=== PATIENT | male | born 1945 | race Caucasian/White ===

== ENCOUNTER 2023-12-28 20:53 | Inpatient (IN) | payer OTHER, SELFPAY ==
[2023-12-28] VITALS (7 sets, daily range): BP systolic 152–170; BP diastolic 72–97; BMI 28.4
--- NOTE | 2023-12-28 16:33 | ED.GENMED ---
History of Present Illness
<Trevor Paul PA-C - Last Filed: 12/28/23 19:14>
General
Chief Complaint: Male Genito-Urinary Symptoms
Source: patient
Exam Limitations: none
Time Seen by Provider: 12/28/23 15:59
Travel History
Have you had any contact with someone who has COVID-19?: No
Do you have any symptoms of coronavirus? Fever > 100 degrees, chills, cough, shortness of breath, sore throat, loss of taste or smell, muscle aches, or headache?: No
History of Present Illness
History of Present Illness:
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 The redness is now spreading up to the lower abdomen. He states he has
been able to urinate 4 times today but it was a weak stream. He takes tramadol for pain but does not take any other medications daily. He is due to start chemotherapy in 2 days. He has never been here. All of his work has been done in [place]
[facility]. He denies nausea vomiting or fever. He states he was using Preparation H to help with swelling 2 days ago and some of the skin came off over the base of his penis.
Phy Exam
<Trevor Paul PA-C - Last Filed: 12/28/23 19:14>
Physical Exam
Physical Exam:
General: Well-appearing male no acute respiratory distress
HEENT: Normocephalic atraumatic
Heart: Regular rate and rhythm no murmurs
Lungs: Clear to auscultation bilaterally no wheezing
Abdomen soft nontender nondistended no guarding rebound normal bowel sounds
exam: Significantly deformed and swollen penis with swollen and erythematous scrotum. Erythema spreading to the lower abdomen.
Extremities: No cyanosis
Course
<Trevor Paul PA-C - Last Filed: 12/28/23 19:14>
Orders/Labs/Results
Orders:
Orders
12/28/23 16:17
Bladder Scan- Treatment ONCE
12/28/23 16:20
Bladder Scan- Treatment ONCE
12/28/23 16:21
Urinalysis Reflex To Culture Urgent
12/28/23 16:29
CT Abd/pelvis W Iv Cont Urgent
Comment:
Reason For Exam: penile and groin swelling
12/28/23 16:49
Complete Blood Count/With Diff Urgent
Comprehensive Metabolic Panel Urgent
Lactic Acid Q4H
Comment: CANCEL 2nd LACTIC ACID IF 1st LACTIC ACID IS LESS THAN 2
Blood Culture Q30M
JIGNA Source: Blood/Venous
Specimen Description:
Blood Culture Q30M
JIGNA Source: Blood/Venous
Specimen Description:
12/28/23 19:04
Piperacillin/Tazo 3.375 Gram [Zosyn] 3.375 gram in 50 ml IV NOW
Vancomycin [Vancocin] 1,500 mg 0.9% Sodium Chloride [Nss] 20 ml 0.9% Sodium Chloride 250 ml [Nss] 250 ml IV NOW
12/28/23 20:30
Lactic Acid Q4H
Comment: CANCEL 2nd LACTIC ACID IF 1st LACTIC ACID IS LESS THAN 2
Abnormal Lab Results
12/28/23
16:49
RBC 3.77 L 10^6/uL
(4.70-6.10)
Hgb 9.9 L g/dL
(13.0-18.0)
Hct 30.2 L %
(39.0-52.0)
MCH 26.3 L pg
(27.0-31.0)
MCHC 32.8 L g/dL
(33.0-37.0)
RDW 14.6 H %
(11.5-14.5)
Absolute Lymphs (auto) 0.5 L 10^3/uL
(1.2-3.4)
Neutrophils % 76.2 H %
(42.2-75.2)
Lymphocytes % 8.8 L %
(20.5-51.1)
Monocytes % 10.2 H %
(1.7-9.3)
Sodium 134 L mmol/L
(135-145)
BUN 28 H mg/dl
(9-20)
AST 78 H U/L
(17-59)
Alkaline Phosphatase 206 H U/L
(38-126)
12/28/23 16:49
12/28/23 16:49
Vital Signs
Initial and Last Documented VS:
Initial Vital Signs
Temp Pulse Resp BP Pulse Ox
98.9 F 79 16 169/97 100
12/28/23 15:40 12/28/23 15:40 12/28/23 15:40 12/28/23 15:40 12/28/23 15:40
Last Documented Vital Signs
Temp Pulse Resp BP Pulse Ox
98.9 F 74 19 170/82 100
12/28/23 15:40 12/28/23 19:10 12/28/23 19:10 12/28/23 19:00 12/28/23 19:00
<Macario Miguel, DO - Last Filed: 12/28/23 16:45>
Orders/Labs/Results
Orders:
Orders
12/28/23 16:17
Bladder Scan- Treatment ONCE
12/28/23 16:20
Bladder Scan- Treatment ONCE
12/28/23 16:21
Urinalysis Reflex To Culture Urgent
12/28/23 16:29
CT Abd/pelvis W Iv Cont Urgent
Comment:
Reason For Exam: penile and groin swelling
12/28/23 16:49
Complete Blood Count/With Diff Urgent
Comprehensive Metabolic Panel Urgent
Lactic Acid Q4H
Comment: CANCEL 2nd LACTIC ACID IF 1st LACTIC ACID IS LESS THAN 2
Blood Culture Q30M
JIGNA Source: Blood/Venous
Specimen Description:
Blood Culture Q30M
JIGNA Source: Blood/Venous
Specimen Description:
12/28/23 19:04
Piperacillin/Tazo 3.375 Gram [Zosyn] 3.375 gram in 50 ml IV NOW
Vancomycin [Vancocin] 1,500 mg 0.9% Sodium Chloride [Nss] 20 ml 0.9% Sodium Chloride 250 ml [Nss] 250 ml IV NOW
12/28/23 20:30
Lactic Acid Q4H
Comment: CANCEL 2nd LACTIC ACID IF 1st LACTIC ACID IS LESS THAN 2
Abnormal Lab Results
12/28/23
16:49
RBC 3.77 L 10^6/uL
(4.70-6.10)
Hgb 9.9 L g/dL
(13.0-18.0)
Hct 30.2 L %
(39.0-52.0)
MCH 26.3 L pg
(27.0-31.0)
MCHC 32.8 L g/dL
(33.0-37.0)
RDW 14.6 H %
(11.5-14.5)
Absolute Lymphs (auto) 0.5 L 10^3/uL
(1.2-3.4)
Neutrophils % 76.2 H %
(42.2-75.2)
Lymphocytes % 8.8 L %
(20.5-51.1)
Monocytes % 10.2 H %
(1.7-9.3)
Sodium 134 L mmol/L
(135-145)
BUN 28 H mg/dl
(9-20)
AST 78 H U/L
(17-59)
Alkaline Phosphatase 206 H U/L
(38-126)
12/28/23 16:49
12/28/23 16:49
Vital Signs
Initial and Last Documented VS:
Initial Vital Signs
Temp Pulse Resp BP Pulse Ox
98.9 F 79 16 169/97 100
12/28/23 15:40 12/28/23 15:40 12/28/23 15:40 12/28/23 15:40 12/28/23 15:40
Last Documented Vital Signs
Temp Pulse Resp BP Pulse Ox
98.9 F 74 19 170/82 100
12/28/23 15:40 12/28/23 19:10 12/28/23 19:10 12/28/23 19:00 12/28/23 19:00
<Trevor Paul PA-C - Last Filed: 12/28/23 19:14>
MDM/Problems Addressed
Differential Diagnosis Includes:
Erythema and swelling of the scrotum penis and lower abdomen. Concern for possible infectious process. Patient having trouble urinating. Will do bladder scan labs lactic acid blood cultures. CT of the abdomen pending. Likely needs IV
antibiotics and admission
<Trevor Paul PA-C - Last Filed: 12/28/23 19:14>
*Critical Care Note
Total Time (30-74mins, 75-104mins- exclusive of procedures): Not Applicable
<WHITLEY Power Last Filed: 12/28/23 19:14>
Update Note
Update Note:
CT reviewed demonstrates edema within the scrotal skin and penis. No abscess to drain. There are also other metastatic lesions noted on the CT in the right lung, liver, right superior pubic ramus. There is suspicious pericardial adenopathy as
well. This information was relayed to the patient. He was unaware of these findings. Discussed with emergency room attending. Will start vancomycin and Zosyn for cellulitis Mitt for further evaluation
ED Attending Note
<Trevor Paul PA-C - Last Filed: 12/28/23 19:14>
-
Portions of this chart may have been created with voice recognition software.� Occasional wrong word or��sound alike� substitutions may have occurred due to the inherent limitations of voice recognition software.
<Macario Miguel DO - Last Filed: 12/28/23 16:45>
ED Attending Note
Patient seen and examined by attending physician: Yes
I performed the substantive portion of visit, reviewed & personally made and approve the management plan that is documented in note by myself or DEIDRA.: Yes
ED Attending Note:
I have seen and evaluated the patient with a [id number] encounter. I have spoken to the advance practicer provider and involved in the medical history, the physical exam, medical decision making.
Evaluation and management service: agree unless noted differently below.
Results interpretation: agree unless noted differently below.
Focused HPI: 78-year-old male presenting with penile swelling and pain. Patient was treated with rectal cancer and states that it has progressed to his penis. Patient is pending the start of chemotherapy on Friday but noted significant swelling
over the past 24 hours
Physical exam: Edematous and erythematous penis and scrotum
Medical Decision Making: Will obtain CT looking for deep space infection. Will start antibiotics. Will ultimately admit
Discharge Plan
Departure
Patient Disposition: Admit
Date of Disposition: 12/28/23
Time of Disposition: 19:14
Admit to: Telemetry
Presentation/result/management discussed w/ accepting MD/DO: Hospitalist
Discharge Problem:
Cellulitis
Referrals:
Cameron Jeff MD [Family Provider] -
Interventions
Interventions:
*Risk Screen - Suicide Last Done: 12/28/23 15:40
*General Assessment Last Done: 12/28/23 16:45
*Neglect/Abuse Screening Last Done: 12/28/23 15:40
ED- Fall Risk Assessment Last Done: 12/28/23 19:06
*ED COVID-19 Vaccine History Last Done: 12/28/23 15:40
ED-Male Genitourinary Assessment Last Done: 12/28/23 17:40
[2023-12-28 17:06] LABS: % Basophils 0.6 % (0-2); % Eosinophils 3.7 % (0-6); % Immature Granulocytes 0.5 % (0-0.5); % Lymphocytes 8.8 % (20.5-51.1); % Monocytes 10.2 % (1.7-9.3); % Neutrophils 76.2 % (42.2-75.2); Absolute Eosinophils 0.2 10^3/uL (0-0.7); Absolute Lymphocytes 0.5 10^3/uL (1.2-3.4); Absolute Monocytes 0.6 10^3/uL (0.1-0.6); Absolute Neutrophils 4.7 10^3/uL (1.4-6.5); Hematocrit 30.2 % (39.0-52.0); Hemoglobin 9.9 g/dL (13.0-18.0); Mean Corp Hgb Conc. 32.8 g/dL (33.0-37.0); Mean Corpuscular Hgb 26.3 pg (27.0-31.0); Mean Corpuscular Volume 80.1 fL (80.0-94.0); Mean Platelet Volume 9.2 fL (7.4-10.4); Nucleated Red Blood Cells % 0 % (-); Platelet Count 281 10^3/uL (130-400); Red Blood Cell Count 3.77 10^6/uL (4.70-6.10); Red Cell Dist. Width 14.6 % (11.5-14.5); White Blood Cell Count 6.2 10^3/uL (4.8-10.8)
[2023-12-28 17:19] LABS: ALT (SGPT) 28 U/L (0-50); AST (SGOT) 78 U/L (17-59); Albumin 3.6 g/dl (3.5-5.0); Alkaline Phosphatase 206 U/L (38-126); Blood Urea Nitrogen 28 mg/dl (9-20); Calcium 9.3 mg/dl (8.4-10.2); Carbon Dioxide 24 mmol/L (22-30); Chloride 103 mmol/L (98-107); Estimated Creatinine Clearance 59 ml/min; Glucose 99 mg/dl (70-99); Sodium 134 mmol/L (135-145); Total Bilirubin 0.7 mg/dl (0.2-1.3); Total Protein 6.8 g/dl (6.3-8.2); eGFR > 60.00
[2023-12-28] MEDS: ZOSYN 50 IV (19:14)
[2023-12-28 19:35] LABS: Urine Albumin Negative (Neg - Trace); Urine Bilirubin Negative (Negative); Urine Character Clear (Clear); Urine Color Yellow; Urine Glucose Negative (Negative); Urine Ketone 1+ (Negative); Urine Leukocyte Trace (Negative); Urine Nitrite Negative (Negative); Urine Occult Blood Negative (Negative); Urine Specific Gravity 1.015 (<1.030); Urine Urobilinogen Negative (Neg - 1+)
[2023-12-28] MEDS: VANCOCIN 300 MG IV (19:46)
[2023-12-28] MEDS: VANCOCIN 300 ML IV (19:46)
[2023-12-28 19:50] LABS: Urine Red Blood Cell None Seen /HPF (0-2); Urine Squamous Cell 0-2 /LPF (Few); Urine White Cell 26-30 /HPF (0-5)
[2023-12-28 19:51] LABS: Urine Bacteria Few (Negative)
--- NOTE | 2023-12-28 20:23 | HPS.HSE ---
Family Physician
-
Family Physician: Cameron Jeff MD
Chief Complaint
-
Penile Pain and Swelling
History of Present Illness
Patient is a 78y M with PMH significant for rectal cancer and penile cancer who presents to ED complaining of penile / scrotal pain, swelling and redness. Patient states that he noted skin changes / thickening of the penis in the Summer of 2022.
He did not seek medical evaluation for quite some time until the area became more evidently painful and swollen. He was seen by Dr. Yaron Jeff in [facility] and had initial evaluation including biopsy, PET / CT, etc. Patient states that he was started
on radiosurgery / external beam radiation treatments. He underwent 20 sessions in 4 weeks - last session was 2 weeks ago. He noted that his symptoms seemed to increase despite these treatments. With evident lack of improvement / apparent
progression, plan was made for systemic chemotherapy. Patient states that he had chemo port placed on Friday and is scheduled to begin chemotherapy this coming Friday. He is currently taking Tramadol for pain with fair results.
Patient notes that he had rectal cancer about 2 years ago. This was successfully treated with radiosurgery and chemo.
He denies any other chronic health issues, medications, etc.
Patient denies any systemic complaints including fevers / chills, N/V/D, etc.
He has some slow stream / dribbling but denies any lower abdominal pain / fullness or complete inability to urinate.
Medical History
Past Medical History
Past Medical History: Reports Other
Additional Past Medical History:
Rectal Cancer (2019)
Penile Cancer
Past Surgical History: Reports Other
Additional Past Surgical History:
Hemorrhoidectomy
Radiosurgery for Rectal CA
Radiosurgery for Penile CA
R ACW Chemo Port
Social History
Tobacco: Non-smoker
Alcohol: Occasional
Drug: None
Family History
Family History: Other (Father: CAD Mother: Breast Cancer Sister: Breast Cancer)
Allergies / Home Medications
Allergies reflects when Allergies were last updated in [employer]
Home Medications with original date entered in [employer]
Allergy/Medication List:
Allergies
Allergy/AdvReac Type Severity Reaction Status Date / Time
No Known Allergies Allergy Unverified 12/28/23 15:45
Home Medications
tramadol 50 mg tablet 50 mg PO Q8H PRN Pain 12/28/23
Review of Systems
-
History Source: Patient
A 12 point ROS was completed and negative except as noted: Yes
Constitutional: Denies Fever or Chills
Respiratory: Denies Cough or Trouble Breathing
Cardiac: Denies Chest Pain or Palpitations
Abdomen/GI: Denies Abdominal Pain, Nausea, Vomiting or Diarrhea
: Reports Other (Penile pain, swelling , redness, deformity. Slow stream.); Denies Dysuria, Frequency, Flank Pain, Incontinence or Bleeding
Neurological: Denies Dizzy or Headache
Psych: Denies Depression or Anxiety
Physical Exam
Vital Signs
Vital Signs
Temp Pulse Resp BP Pulse Ox
98.9 F 74 19 162/86 100
12/28/23 15:40 12/28/23 19:10 12/28/23 19:10 12/28/23 20:00 12/28/23 20:00
Physical Exam
General: Other (78y M in no acute distress.)
HEENT: Moist mucous membranes and PERRLA
Respiratory: Clear; No Wheezes, Rales or Rhonchi
Cardiac: S1/S2, Regular Rhythm and Murmur (II/ RAUDEL)
GI: Soft, Non Tender, Non Distended and Normal Bowel Sounds
Genito-urinary: Other (Induration and mild erythema involving the penis, scrotum and perineum. Pos tenderness. No appreciable fluctuance. Penile deformity including distal stricture. Small area of skin breakdown distal / dorsal aspect of the
penis.)
Musculoskeletal: No Clubbing, No Cyanosis and No Edema
Neuro: AO x 3
Laboratory Results
-
12/28/23 16:49
12/28/23 16:49
Laboratory Results
Lactic Acid 1.0 mmol/L (0.7-2.0) 12/28/23 16:49
Total Bilirubin 0.7 mg/dl (0.2-1.3) 12/28/23 16:49
AST 78 U/L (17-59) H 12/28/23 16:49
ALT 28 U/L (0-50) 12/28/23 16:49
Alkaline Phosphatase 206 U/L (38-126) H 12/28/23 16:49
Impression/Plan
-
A/P: Patient is a 78y M with PMH significant for penile cancer who presents to ED complaining of pain, swelling and redness in the penis / scrotum.
Penile Cancer
Pain, Swelling, Redness
- Admit for further evaluation and treatment.
- ? component of acute infection - and note that patient has small area of skin breakdown at distal aspect of the penis.
- Cover with IV abx and monitor for any clinical improvement.
- Symptoms alternately may be secondary to recent radiation sessions and / or malignancy itself.
- Pain control / supportive care.
- Bladder scan / monitor for any evidence of retention.
- Urology / Oncology evaluations for further recommendations.
Normocytic Anemia
- Unknown chronicity. Unknown etiology.
- Check iron studies, etc.
- No evident / active source of blood loss.
DVT Prophylaxis: Lovenox
Code Status: Full
[2023-12-28 22:01] LABS: Iron 37 ug/dl (49-181)
[2023-12-28 22:10] LABS: Percent Saturation 16 % (20-50); Total Iron Binding Capacity 228 ug/dl (261-462)
--- NOTE | 2023-12-28 22:40 | PHA.VAN.IN ---
Assessment
- Assessment
Renal Function: Unknown baseline
Maximum Temperature: 98.9
Minimum Temperature: piperacillin-tazobactam
AUC Dosing Plan
- Dosing Variables
Dosing Weight (kg): 84.6
Dosing CrCl (ml/min): 59
Vd coefficient (L/kg): 0.7
- Empiric Dosing
Initial / Loading Dose: 1500mg 12/28/23 19:46
Maintenance Regimen: vanc 1500mg q24h
Estimated AUC (mcg*h/mL): 494
Estimated Peak (mcg*h/mL): 35.1
Estimated Trough (mcg/ml): 10.6
Estimated Half Life (H): 13.0
- Monitoring
No levels ordered at this time: consider in next few days
MRSA Screen: Ordered per protocol
Pharmacokinetics Vancomycin I
- -
Patient Age: 78
Patient Sex: Male
Vancomycin Day #: 1
Indication: Skin And Soft Tissue
Requesting Provider: Dr Romeo
Pertinent Antimicrobial Allergies:
no known allergies
Height / Weight:
Height 5 ft 8 in
Actual Weight 84.686 kg
Pertinent Past Medical History: rectal/penile cancer - radiation 2 weeks [employer]
- Vital Signs / Lab Results
Temp Pulse Resp BP Pulse Ox
98.6 F 58 18 168/72 98
12/28/23 21:38 12/28/23 21:38 12/28/23 21:38 12/28/23 21:38 12/28/23 21:38
Lab Results - Hematology
12/28/23
16:49
WBC 6.2
Lab Results - Chemistry
12/28/23
16:49
BUN 28 H
Creatinine 1.0
Estimated Creat Clear 59
Albumin 3.6
12/28/23 12/28/23
16:49 20:30
Lactic Acid 1.0 Cancelled
Lab Results - Urine
12/28/23
19:17
Urine Nitrite (Reflex) Negative
Leukocyte Esterase Rfl Trace A
Urine WBC (Reflex) 26-30 A
Ur Squamous Epith Cells 0-2
Urine Bacteria (Reflex) Few A
[2023-12-28 22:58] LABS: Vitamin B12 322 pg/ml (239-931)
[2023-12-28] MEDS: NSS 1000 IV (23:00)
[2023-12-29] MEDS: ZOSYN 50 IV ×3 (02:17→14:27)
[2023-12-29] MEDS: VANCOCIN 300 MG IV (06:31)
[2023-12-29] MEDS: VANCOCIN 300 ML IV (06:31)
[2023-12-29 07:01] LABS: Hematocrit 30.4 % (39.0-52.0); Hemoglobin 9.8 g/dL (13.0-18.0); Mean Corp Hgb Conc. 32.2 g/dL (33.0-37.0); Mean Corpuscular Hgb 26.3 pg (27.0-31.0); Mean Corpuscular Volume 81.5 fL (80.0-94.0); Mean Platelet Volume 8.8 fL (7.4-10.4); Platelet Count 244 10^3/uL (130-400); Red Blood Cell Count 3.73 10^6/uL (4.70-6.10); Red Cell Dist. Width 14.6 % (11.5-14.5); White Blood Cell Count 6.3 10^3/uL (4.8-10.8)
[2023-12-29 07:30] LABS: Blood Urea Nitrogen 19 mg/dl (9-20); Calcium 8.9 mg/dl (8.4-10.2); Carbon Dioxide 27 mmol/L (22-30); Chloride 101 mmol/L (98-107); Estimated Creatinine Clearance 65 ml/min; Glucose 98 mg/dl (70-99); Potassium 4.3 mmol/L (3.5-5.1); Sodium 133 mmol/L (135-145); eGFR > 60.00
[2023-12-29 07:42] VITALS: BP 144/72
--- NOTE | 2023-12-29 07:55 | W.PN.HOSP.TC ---
Today's Communication/Plan
-
Discharge today
Assessment / Plan
Assessment / Plan
Physical Exam
General: Not in acute distress
HEENT: Normocephalic. Moist mucous membranes
Respiratory: Clear; No Wheezes, Rales or Rhonchi
Cardiac: S1/S2, Regular Rhythm and Murmur (II/ RAUDEL)
GI: Soft, Non Tender, Non Distended and Normal Bowel Sounds
Genito-urinary: Other (Induration and mild erythema involving the penis, scrotum and perineum.� No significant tenderness.� No appreciable fluctuance.� Penile deformity including distal stricture.� Small area of skin breakdown distal / dorsal aspect
of the penis.)
Musculoskeletal: No Cyanosis and No Edema
Neuro: AAO x 3

A/P: Patient is a 78y M with PMH significant for penile cancer who presents to ED complaining of pain, swelling and redness in the penis / scrotum.
Invasive and Metastatic Penile Cancer
Presentation with persistent penile swelling following recent radiation treatments completed about 2 weeks prior to presentation
- ? component of acute infection - and note that patient has small area of skin breakdown at distal aspect of the penis.
- I discussed with urologist Dr. Mcclure who learned that patient has had similar swelling and pain for at least 2 to 3 weeks without much acute change, was observed in a similar state by his treatment team, there were no fluid
collections on his CT Scan and no infectious signs to suggest cellulitis or worsening systemic infection.
-Patient's presentation is likely just progression of cancer and radiation changes
- Patient is scheduled for chemotherapy tomorrow with Dr. Silvano Mahmood on [address] [place] in [facility]
- Urology / Oncology evaluations for further recommendations.
- Discussed with urology: will discharge patient on Doxycycline and Amoxicillin for 5 days
Normocytic Anemia
- Unknown chronicity. Unknown etiology.
- Recheck iron studies outpatient with oncologist
- No evident / active source of blood loss.
DVT Prophylaxis: Lovenox
Code Status: Full
More than 30 minutes spent in discharge including
Final examination of the patient
Summarizing hospital stay
Instructions for continuing care to all relevant caregivers
Preparation of discharge records, prescriptions, and referral forms
Total time spent (in minutes): 40
Anticipated Discharge: Today
Subjective/Interval History
-
Date of Service: December 29, 2023
Patient was seen and examined. He denied any new fever, new symptoms in his groin region, or any other new complaints. He intends to go to [facility] tomorrow morning for his chemotherapy treatment tomorrow.
Objective Data
-
Labs:
Laboratory Results
12/29/23
06:45
WBC 6.3
Hgb 9.8 L
Hct 30.4 L
Plt Count 244
Sodium 133 L
Potassium 4.3
Chloride 101
Carbon Dioxide 27
BUN 19
Creatinine 0.9
Glucose 98
Calcium 8.9
Vital Signs:
Vital Signs
Temp Pulse Resp BP Pulse Ox
98.8 F 63 16 144/72 100
12/29/23 07:42 12/29/23 07:42 12/29/23 07:42 12/29/23 07:42 12/29/23 07:42
I&O
12/28/23 12/29/23 12/30/23
06:59 06:59 06:59
Intake Total 1090 / 1090
Output Total 1250 / 1250
Balance -160 / -160
--- NOTE | 2023-12-29 09:24 | CONS.URO ---
Consultation
-
Performing Provider: Domingofer
Reason for Consultation: Penile swelling
Medical History
History of Present Illness
78M with a history rectal cancer tx with radiation/chemotherapy 2 years ago, now with recently diagnosed advanced penile cancer
Patient states that he noted skin changes / thickening of the penis in the Summer of 2022.� He did not seek medical evaluation for quite some time until the area became more evidently painful and swollen.� He was seen by Dr. Yaron Jeff in [facility] and
had initial evaluation including biopsy, PET / CT, etc.� Patient states that he was started on radiosurgery / external beam radiation treatments.� He underwent 20 sessions in 4 weeks - last session was 2 weeks ago.� He noted that his symptoms seemed
to increase despite these treatments.� With evident lack of improvement / apparent progression, plan was made for systemic chemotherapy.� Patient states that he had chemo port placed on Friday and is scheduled to begin chemotherapy this coming
Friday.� He is currently taking Tramadol for pain with fair results.
Patient presented to ED due to concern for infection due to persistent penile pain and swelling
These symptoms have not acutely worsened in the past several days and current degree of penile swelling and pain and consistent with that over the past few weeks including the time he was last examined by his treating physician
Redness around his penis and degree of induration are chronic
Patient denies any systemic complaints including fevers / chills, N/V/D
He is having some mild voiding difficulty which is improved from prior around a week ago, generally feels he can void completely at this time
CT scan showed widely metastatic disease and invasive without fluid collection
Past Medical History
Past Medical History: Other (Rectal cancer, Penile cancer)
Past Surgical History: None
Social History
Tobacco: Non-smoker
Alcohol: Occasional
Drug: None
Family History
Family History: Reviewed & Not Pertinent
Allergies/Home Medications
Allergies
Allergy/AdvReac Type Severity Reaction Status Date / Time
No Known Allergies Allergy Unverified 12/28/23 15:45
Home Medications
Medication Instructions Recorded Confirmed Type
tramadol 50 mg tablet 50 mg PO Q8H PRN Pain 12/28/23 12/28/23 History
Physical Exam
Vital Signs
Vital Signs
Temp Pulse Resp BP Pulse Ox
98.8 F 63 16 144/72 100
12/29/23 07:42 12/29/23 07:42 12/29/23 07:42 12/29/23 07:42 12/29/23 07:42
Lab / Testing Results
Laboratory Results
12/29/23 06:45
12/29/23 06:45
Physical Exam
General: Well Developed, Well Nourished and No Apparent Distress
HEENT: Normocephalic
Respiratory: Clear and Non Labored Respirations
GI: Soft and Non Tender
Genito-urinary: Other (penile swelling with bulky invasive tumor taking up majority of internal and external penile structures. Some mild diffuse erythema around penis and scrotum)
Neuro: AO x 3
Psych: Calm and Intact Judgement
Assessment / Plan
-
78M with invasive and metastatic penile cancer
Presenting with persistent penile swelling following recent radiation treatments completed about 2 weeks ago
- Timing and slow progression of symptoms without any infectious signs, as well as no abscess on CT, suggest penile swelling and pain are the result of disease progression and radiation changes as opposed to infectious process
- Reasonable to continue a course of empiric antibiotic for 5 days to cover any potential but less likely associated cellulitis
- Despite penile swelling he is currently voiding well without distended bladder on CT. Discussed that he may eventually need a catheter or alternate form of bladder drainage if his disease progresses
- Would recommend prompt discharge so he is able to begin chemotherapy as scheduled tomorrow
--- NOTE | 2023-12-29 09:45 | PHA.VAN.FU ---
Vancomycin Assessment / Plan
- Assessment
Renal Function: Stable
WBC's are: WNL
In the past 24 hrs, patient has been: Afebrile
Concomitant Antimicrobials: piperacillin/tazobactam
- Dosing Plan
Continue: Vanc 1500mg Q24H
Dosing Comments: if SCR continues to decrease, may require dose adjustment
- Monitoring Plan
No level(s) ordered at this time: consider levels in next few days
- Follow Up
Pharmacy will continue to follow.
Vancomycin Follow UP
- -
Patient Age: 78
Patient Sex: Male
Vancomycin Day #: 2
Indication: Skin And Soft Tissue
Requesting Provider: Dr Romeo
Pertinent Antimicrobial Allergies:
NKDA
Height / Weight:
Height 5 ft 8 in
Actual Weight 84.686 kg
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
- Vital Signs / Lab Results
Temp Pulse Resp BP Pulse Ox
98.8 F 63 16 144/72 100
12/29/23 07:42 12/29/23 07:42 12/29/23 07:42 12/29/23 07:42 12/29/23 07:42
Lab Results - Hematology
12/28/23 12/29/23
16:49 06:45
WBC 6.2 6.3
Lab Results - Chemistry
12/28/23 12/29/23
16:49 06:45
BUN 28 H 19
Creatinine 1.0 0.9
Estimated Creat Clear 59 65
Albumin 3.6
12/28/23 12/28/23
16:49 20:30
Lactic Acid 1.0 Cancelled
Lab Results - Urine
12/28/23
19:17
Urine Nitrite (Reflex) Negative
Leukocyte Esterase Rfl Trace A
Ur Squamous Epith Cells 0-2
--- NOTE | 2023-12-29 10:53 | CM ---
Reviewed chart, met with patient to obtain information for assessment. Patient stated that he lives alone in a one floor apartment up one flight of steps to get in. He described himself as independent with his ADLs, bathing, dressing, toileting and
ambulates independently without device but he does have a cane if he needs it.
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
He drives and can get to his appointments and do all of his own shopping.
He denied any DME besides his cane.
He has never had VN services.
Patient has never been to a SNF in the past.
Patient has a prescription plan and uses [facility] in [facility] for all of his medications.
His PCP is Dr. Danish Jeff.
Plan: Case management will continue to follow and assist with discharge planning. Patient feels that he will be able to return home when stable and has no CM needs.
[2023-12-29] MEDS: TORADOL 15 MG IV (12:29)
[2023-12-29] MEDS: NSS IV (12:29)
[2023-12-29 12:46] LABS: Hepatitis C Antibody Negative (Negative)
--- NOTE | 2023-12-29 15:18 | W.DS.TRANS ---
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
-
Discharge Instructions:
Discharge Diagnosis/Procedures Invasive and Metastatic Penile Cancer
Presentation with persistent penile swelling
following recent radiation treatments completed
about 2 weeks prior to presentation in December
2023
Normocytic Anemia
Diet As tolerated
Activity As tolerated
Instructions:
Stand-Alone Forms:
Changes to Home Medications: Yes
Discharge Medications:
DC Medications w/original date entered in Revstr
tramadol 50 mg tablet 50 mg PO Q8H PRN Pain 12/28/23
acetaminophen 325 mg tablet (Tylenol) 650 mg PO Q8H PRN Pain 12/29/23
amoxicillin 500 mg tablet 500 mg PO Q8H 5 days #15 tabs 12/29/23
doxycycline hyclate 100 mg tablet 100 mg PO BID 5 days #10 tabs 12/29/23
ibuprofen 200 mg tablet 800 mg PO [id number] PRN Pain #0 tabs 12/29/23
Home Medication Changes
New medications are Amoxicillin and Doxycycline
Ibuprofen changed from Q8H prn to Q12H prn
Tylenol held
Pending Results: Yes
Additional Pending Results:
Blood culture results
Urine culture results
Total time spent discharging patient (in min): 40
[2023-12-29 15:27] VITALS: BP 138/66
--- NOTE | 2023-12-29 16:33 | PTCARENOTE ---
reviewed D/C instructions with pt including F/U. Pt agitated the address and name of Dr. Quinones was incorrect and wanted Dr. Mahmood oncology added. Both providers are outside of [place] and practicing in [facility]. UM corrected and completed F/U appointment
portion of D/C instructions. Pt's own Tramadol obtained from pharmacy and returned to him.
--- NOTE | 2023-12-31 21:57 | W.DCSUMMARY ---
Discharge Summary
Discharge Data
Date of Admission: 12/28/23
Date of Discharge: 12/29/23
Total time spent discharging patient (in min): 40
-
Pending Results: Yes
Additional Pending Results:
Blood culture results
Urine culture results
Hospital Course
78 y/o male with past medical history significant for rectal cancer and penile cancer who presented to the [facility] Emergency Department complaining of penile/scrotal pain, swelling and redness. Patient was started on intravenous
antibiotics and urology was consulted. Urologist Dr. Mcclure saw the patient and learned that patient has had similar swelling and pain in his groin for at least 2 to 3 weeks without much acute change, was observed in a similar state by his treatment
team, there were no fluid collections on his CT Scan and no infectious signs to suggest cellulitis or worsening systemic infection (however please refer to the official report of the CT scan for full details). Urology and hospitalist team determined
that patient was stable for discharge on a short course of antibiotics and that it was important that patient make to his chemotherapy session in [facility] the next day.
Discharge Plan
-
Patient Disposition: Home (Routine Discharge)
Discharge Diagnosis/Procedures: Invasive and Metastatic Penile Cancer
Presentation with persistent penile swelling following recent radiation treatments completed about 2 weeks prior to presentation in December 2023
Normocytic Anemia
Diet: As tolerated
Activity: As tolerated
Activity Restrictions/Additional Instructions:
Please follow-up closely with your outpatient physicians starting tomorrow with your oncologist in [facility]
Referrals:
Dr. Jesus Jeff [Other]
Mer Hicks RN [Nursing] -
Prescriptions:
New
amoxicillin 500 mg tablet
500 mg PO Q8H 5 Days Qty: 15 0RF
doxycycline hyclate 100 mg tablet
100 mg PO BID 5 Days Qty: 10 0RF
Continued
tramadol 50 mg Tablet
50 mg PO Q8H PRN (Reason: Pain)
Changed
ibuprofen 200 mg Tablet
800 mg PO [id number] PRN (Reason: Pain) Qty: 0 0RF
Held
acetaminophen [Tylenol] 325 mg Tablet
650 mg PO Q8H PRN (Reason: Pain)
Hold Instructions: Resume on 01/02/24. Check with your oncologist or outpatient physician about when to resume this medication given your elevated 'AST' level on labwork
Discharge Orders:
Discharge Patient (As Directed); Ordered 12/29/23
Ordered By: Henry Breaux
Discharge Date and Time
Discharge Date/Time: 12/29/23 16:58
Print Language: SLOVENIAN
== END 2023-12-29 16:58 | disposition home or self-care (01) | DRG 724 ==
LOC: 3 WEST ACU 20:53
PROVIDERS: Physician Assistant; ADMITTING PHYSICIAN Hospitalist; ATTENDING PHYSICIAN Hospitalist; CONSULT PHYSICIAN Urology; EMERGENCY PHYSICIAN Student in an Organized Health Care Education/Training Program; FAMILY PHYSICIAN Internal Medicine
DX: C60.9 Malignant neoplasm of penis, unspecified (principal); D64.9 Anemia, unspecified; Z85.49 Personal history of malignant neoplasm of other male genital organs
CPT/HCPCS: 51798; 74177; 80048; 80053; 81003; 81015; 82607; 83540; 83550; 83605; 85025; 85027; 86803; 87040; 87070; 87086; 96365; 96367; 99285; Q9967

== ENCOUNTER 2024-01-01 13:32 | Emergency (ER) | payer OTHER, SELFPAY ==
[2024-01-01 13:36] VITALS: BP 147/83
--- NOTE | 2024-01-01 14:35 | ED.GENMED ---
History of Present Illness
General
Chief Complaint: Abdominal Symptoms
Time Seen by Provider: 01/01/24 14:06
Travel History
Have you had any contact with someone who has COVID-19?: No
Do you have any symptoms of coronavirus? Fever > 100 degrees, chills, cough, shortness of breath, sore throat, loss of taste or smell, muscle aches, or headache?: No
History of Present Illness
History of Present Illness:
-year-old male presents emergency department due to worsening swelling of the penis and suprapubic space. Patient has known penile cancer, was here over the weekend and admitted for possible infectious etiology to his symptoms. However imaging
during that stay revealed widely metastatic penile cancer. He apparently has a history of rectal cancer and was treated with 'radiotherapy' in [facility]. He did not see healthcare providers for quite some time until penile symptoms dramatically
worsened. The swelling and redness has been ongoing for the past 8 or so months. He was scheduled to start chemotherapy in [facility] the day after his hospital discharge however states to me that they refused to treat him as he was noted to have
bedbugs. He also states that he went to the [facility] outpatient proton therapy office yesterday and was told he is not a candidate. He arrives here today hopeful for oncology evaluation
Review of Systems
Review of Systems
Allergies reviewed?: Yes
All Other Systems: ROS reviewed and negative except as documented in HPI and ROS
Phy Exam
Physical Exam
Physical Exam:
GEN: Well appearing, NAD, WDWN
HEENT: Oral mucosa moist, no scleral icterus
Cardiac: Regular rate
Lung: No respiratory distress, no tachypnea
MSK: No gross deformity or injuries
: Profoundly edematous/erythematous penis and scrotum. Scant erythema extends into the lower abdomen.
Skin: Good color, no pallor or jaundice, no rashes
Neuro: AO x3, moves all extremities freely
Psych: Calm, cooperative
Course
Vital Signs
Initial and Last Documented VS:
Initial Vital Signs
Temp Pulse Resp BP Pulse Ox
98.5 F 60 18 147/83 100
01/01/24 13:36 01/01/24 13:36 01/01/24 13:36 01/01/24 13:36 01/01/24 13:36
Last Documented Vital Signs
Temp Pulse Resp BP Pulse Ox
98.5 F 60 18 147/83 100
01/01/24 13:36 01/01/24 13:36 01/01/24 13:36 01/01/24 13:36 01/01/24 13:36
MDM/Problems Addressed
MDM/Problems Addressed:
Recommend the patient follow-up as an outpatient with oncology. He is advised that this is a very complex situation given that he has widely metastatic disease and his medical care seems quite inconsistent as he tends various location continuously
in [place] as well as locally. Advised me he plans to continue with follow-up care locally. He is in no acute distress
*Critical Care Note
Total Time (30-74mins, 75-104mins- exclusive of procedures): Not Applicable
ED Attending Note
-
Portions of this chart may have been created with voice recognition software.� Occasional wrong word or��sound alike� substitutions may have occurred due to the inherent limitations of voice recognition software.
Discharge Plan
Departure
Patient Disposition: Home (Routine Discharge)
Date of Disposition: 01/01/24
Time of Disposition: 14:35
Patient with high blood pressure during this ER visit?: No
Discharge Problem:
Metastasis from malignant neoplasm of penis
Prescriptions:
No Action
tramadol 50 mg Tablet
50 mg PO Q8H PRN (Reason: Pain)
acetaminophen [Tylenol] 325 mg Tablet
650 mg PO Q8H PRN (Reason: Pain)
Hold Instructions: Resume on 01/02/24. Check with your oncologist or outpatient physician about when to resume this medication given your elevated 'AST' level on labwork
amoxicillin 500 mg tablet
500 mg PO Q8H 5 Days Qty: 15 0RF
doxycycline hyclate 100 mg tablet
100 mg PO BID 5 Days Qty: 10 0RF
ibuprofen 200 mg Tablet
800 mg PO [id number] PRN (Reason: Pain) Qty: 0 0RF
Referrals:
Harman Mcmahon DO [Active] -
Cameron Jeff MD [Family Provider] -
Activity Restrictions/Additional Instructions:
You have stage IV, metastatic cancer of the penis
You need to discuss management with oncology
There is no evidence for infection
Interventions
Interventions:
*Risk Screen - Suicide Last Done: 01/01/24 13:36
*General Assessment Last Done: 01/01/24 13:36
*Neglect/Abuse Screening Last Done: 01/01/24 13:36
ED- Fall Risk Assessment Last Done: 01/01/24 14:14
*ED COVID-19 Vaccine History Last Done: 01/01/24 13:36
*Nursing Disposition Last Done: 01/01/24 14:58
DY-Qttyut-Rgyarwnsgc Assessment Last Done: 01/01/24 14:14
Discharge Date and Time
Discharge Date/Time: 01/01/24 14:59
Print Language: YI
== END 2024-01-01 14:59 | disposition home or self-care (01) ==
LOC: EMR 13:32
PROVIDERS: EMERGENCY PHYSICIAN Emergency Medicine; FAMILY PHYSICIAN Internal Medicine
DX: C60.9 Malignant neoplasm of penis, unspecified (principal); C79.9 Secondary malignant neoplasm of unspecified site; N48.89 Other specified disorders of penis; Z85.048 Personal history of other malignant neoplasm of rectum, rectosigmoid junction, and anus; Z92.3 Personal history of irradiation
CPT/HCPCS: 99283

== ENCOUNTER 2024-01-29 21:47 | Emergency (ER) | payer OTHER, SELFPAY ==
[2024-01-29 21:47] VITALS: BMI 29.5
[2024-01-29 21:55] VITALS: BP 173/84
[2024-01-29 22:20] LABS: % Basophils 0.5 % (0-2); % Eosinophils 4.9 % (0-6); % Immature Granulocytes 0.6 % (0-0.5); % Lymphocytes 6.7 % (20.5-51.1); % Monocytes 10.2 % (1.7-9.3); % Neutrophils 77.1 % (42.2-75.2); Absolute Eosinophils 0.4 10^3/uL (0-0.7); Absolute Immature Granulocytes 0.1 10^3/uL (0-0.05); Absolute Lymphocytes 0.5 10^3/uL (1.2-3.4); Absolute Monocytes 0.8 10^3/uL (0.1-0.6); Hematocrit 30.4 % (39.0-52.0); Hemoglobin 9.9 g/dL (13.0-18.0); Mean Corp Hgb Conc. 32.6 g/dL (33.0-37.0); Mean Corpuscular Hgb 25.9 pg (27.0-31.0); Mean Corpuscular Volume 79.6 fL (80.0-94.0); Mean Platelet Volume 8.6 fL (7.4-10.4); Nucleated Red Blood Cells % 0 % (-); Platelet Count 268 10^3/uL (130-400); Red Blood Cell Count 3.82 10^6/uL (4.70-6.10); Red Cell Dist. Width 15.9 % (11.5-14.5); White Blood Cell Count 7.8 10^3/uL (4.8-10.8)
[2024-01-29 22:40] LABS: ALT (SGPT) 32 U/L (0-50); AST (SGOT) 80 U/L (17-59); Albumin 3.5 g/dl (3.5-5.0); Alkaline Phosphatase 360 U/L (38-126); Blood Urea Nitrogen 16 mg/dl (9-20); Calcium 8.8 mg/dl (8.4-10.2); Carbon Dioxide 29 mmol/L (22-30); Chloride 100 mmol/L (98-107); Glucose 118 mg/dl (70-99); Potassium 4.4 mmol/L (3.5-5.1); Sodium 132 mmol/L (135-145); Total Bilirubin 0.5 mg/dl (0.2-1.3); Total Protein 6.9 g/dl (6.3-8.2); eGFR > 60.00
[2024-01-29 22:42] LABS: NT-proBNP 471 pg/ml
[2024-01-30 00:31] VITALS: BP 162/80
[2024-01-30 01:00] VITALS: BP 147/72
[2024-01-30] MEDS: MORPHINE SULFATE 4 MG IV (01:01)
[2024-01-30] MEDS: TORADOL 15 MG IV (01:01)
--- NOTE | 2024-01-30 01:12 | EDRN ---
Per report from triage, small black bug seen crawling on pt.'s clothes during EKG. Bug placed in container, positive confirmation from housekeeping it is bed bug. Pt. was deconned in shower, belongings double bagged, clean linens provided. Pt. moved
to rm. 38.
--- NOTE | 2024-01-30 01:46 | ED.GENMED ---
History of Present Illness
General
Chief Complaint: Swelling
Source: patient
Exam Limitations: none
Time Seen by Provider: 01/29/24 23:04
Nursing documentation reviewed up to this point in time: agreed with
Travel History
Have you had any contact with someone who has COVID-19?: No
Do you have any symptoms of coronavirus? Fever > 100 degrees, chills, cough, shortness of breath, sore throat, loss of taste or smell, muscle aches, or headache?: No
History of Present Illness
History of Present Illness:
78-year-old male presenting with bilateral edema in his lower extremities over the last 3 days. Patient says that he has been receiving treatment daily in [facility] for penile cancer. The treatment is what he calls 'radiotherapy' and he says
he has been going every day for 2 weeks. He has been seen here twice in December of this year for swelling, pain and redness to his penis, testicles and into his abdomen. Swelling seems to be slightly worse but now he has swelling in his legs. He
has been sleeping with his legs down in a recliner because he has most discomfort when he is lying flat and he has his legs elevated. He feels like he cannot get comfortable that way despite tramadol for pain. Patient still able to urinate through
his very swollen penis. He says that he is not being treated with surgery or chemotherapy. He had remote colon and rectal cancer previously. There is documentation that he was going to start chemotherapy in [facility] recently but he was noted
to have bedbugs so the he says that he was refused treatment.
Patient has had a little bit of exertional dyspnea the last day as well. He denies fever, chest pain, abdominal pain, vomiting or diarrhea, previous history of CHF
Past History
Past History
ED Past Medical History: Cancer
Social History
Tobacco: Non-smoker
Review of Systems
Review of Systems
Allergies reviewed?: Yes
All Other Systems: Not applicable
Phy Exam
Physical Exam
Physical Exam:
GENERAL: Alert , in no apparent distress
EYE: pupils equal and reactive
NECK: Supple
ENT: o/p clr, mmm.
CARDIAC: Regular rate and rhythm . Moderate lower extremity pitting edema 2+ symmetric extending into his thighs
LUNGS: Clear breath sounds bilaterally, no acute respiratory distress, no wheezes/rales/rhonchi
ABDOMEN: Soft, without focal tenderness, no r/g, no cvat, normal bowel sounds
Patient has a significant amount of scrotal and testicular edema, moderate erythema diffusely
NEUROLOGICAL: Alert and oriented, no focal neuro deficits
SKIN: Warm and dry, skin intact.
MUSCULOSKELETAL: No edema, well perfused. neg rachna's sign
PSYCH: Normal and appropriate interaction.
Scores
Heart Failure Risk
Heart Failure Risk Score: Not Applicable
Course
Orders/Labs/Results
Orders:
Orders
01/29/24 22:07
Urinalysis Reflex To Culture Urgent
Date Specimen was Collected: 01/29/24
Time Specimen was Collected: 22:07
01/29/24 22:09
ECG [Electrocardiogram (*1)] Urgent
Reason for Study: Shortness of Breath
Cardiology Consult: Unknown
EKG- Treatment ONCE
01/29/24 22:15
BNP [NT-proBNP] Urgent
Complete Blood Count/With Diff Urgent
Comprehensive Metabolic Panel Urgent
01/30/24 00:00
CR Chest - 2 Views Urgent
Comment:
Reason For Exam: sob
US Periph Venous LOWER Ext Robbin Urgent
Reason For Exam: b/l LE edema
01/30/24 00:45
CT Abd/Pel (IV only)-DH only Urgent
Reason For Exam: b/l le edema in setting penile cancer,
01/30/24 00:55
Ketorolac [Toradol] 15 mg IV NOW STA
Morphine Sulfate 4 mg IV NOW STA
Abnormal Lab Results
01/29/24
22:15
RBC 3.82 L 10^6/uL
(4.70-6.10)
Hgb 9.9 L g/dL
(13.0-18.0)
Hct 30.4 L %
(39.0-52.0)
MCV 79.6 L fL
(80.0-94.0)
MCH 25.9 L pg
(27.0-31.0)
MCHC 32.6 L g/dL
(33.0-37.0)
RDW 15.9 H %
(11.5-14.5)
Abs Immat Gran (auto) 0.1 H 10^3/uL
(0-0.05)
Absolute Lymphs (auto) 0.5 L 10^3/uL
(1.2-3.4)
Absolute Monos (auto) 0.8 H 10^3/uL
(0.1-0.6)
Immature Gran % 0.6 H %
(0-0.5)
Neutrophils % 77.1 H %
(42.2-75.2)
Lymphocytes % 6.7 L %
(20.5-51.1)
Monocytes % 10.2 H %
(1.7-9.3)
Sodium 132 L mmol/L
(135-145)
Glucose 118 H mg/dl
(70-99)
AST 80 H U/L
(17-59)
Alkaline Phosphatase 360 H U/L
(38-126)
01/29/24 22:15
01/29/24 22:15
Vital Signs
Initial and Last Documented VS:
Initial Vital Signs
Temp Pulse Resp BP Pulse Ox
98.1 F 73 20 173/84 100
01/29/24 21:55 01/29/24 21:55 01/29/24 21:55 01/29/24 21:55 01/29/24 21:55
Last Documented Vital Signs
Temp Pulse Resp BP Pulse Ox
98.1 F 59 19 145/67 99
01/29/24 21:55 01/30/24 01:00 01/30/24 01:00 01/30/24 02:40 01/30/24 02:45
MDM/Problems Addressed
Differential Diagnosis Includes:
CHF, peripheral edema, DVT
MDM/Problems Addressed:
78-year-old with penile cancer with questionably reliable treatment plan in [facility]
here with edema to b/l LE with mild dyspnea x 3 days
pt has been riding back and forth to [facility] for this radiotherapy treatment he calls it, directed at his penis
he has also been sitting with his legs down and sleeping in a recliner with his legs down
he has not had significant worsenign of swellin gin his scrotum and penis
was admitted for this a month ago and had ct showing evidence of metastasis
it seems as if pt does not have full insight into his condition
given his cancer history, will US and check CT
d/w ed attending dr. gonzalez
01/30/2024 0333 AM
pt's anemia is stable on labs from previous month
us dvt neg b/l
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
likly the cause of his edema is dependent from standing
turns out he stands or sits almost all day becuase of pain lying down
has some pain medication, given dose here, feels better
will give short course lasix 20 mg once a day for 3 days to help with swelling
d/c home
given # for oncologist locally
*Critical Care Note
Total Time (30-74mins, 75-104mins- exclusive of procedures): Not Applicable
ED Attending Note
-
Portions of this chart may have been created with voice recognition software.� Occasional wrong word or��sound alike� substitutions may have occurred due to the inherent limitations of voice recognition software.
Discharge Plan
Departure
Patient Disposition: Home (Routine Discharge)
Date of Disposition: 01/30/24
Time of Disposition: 02:55
Patient with high blood pressure during this ER visit?: Yes
Condition: Fair
Covid-19: Not Applicable
Discharge Problem:
Dependent edema
Instructions: Dependent Edema (DC), BLOOD PRESSURE
Prescriptions:
New
furosemide [Lasix] 20 mg tablet
20 mg PO DAILY Qty: 3 0RF
No Action
tramadol 50 mg Tablet
50 mg PO Q8H PRN (Reason: Pain)
acetaminophen [Tylenol] 325 mg Tablet
650 mg PO Q8H PRN (Reason: Pain)
Hold Instructions: Resume on 01/02/24. Check with your oncologist or outpatient physician about when to resume this medication given your elevated 'AST' level on labwork
amoxicillin 500 mg tablet
500 mg PO Q8H 5 Days Qty: 15 0RF
doxycycline hyclate 100 mg tablet
100 mg PO BID 5 Days Qty: 10 0RF
ibuprofen 200 mg Tablet
800 mg PO [id number] PRN (Reason: Pain) Qty: 0 0RF
Referrals:
Jung Ferris MD [Family Provider] - Follow up in 2-3 days
Halmet Carlos MD [Active] - Follow up in 2-3 days (oncology)
Activity Restrictions/Additional Instructions:
Your edema is probably dependent edema from sitting with your legs down or standing frequently.
You have some progression of the tumors in your liver which is concerning for a worsening of your cancer.
For the edema you can try wearing compression stockings and taking Lasix 20 mg once a day for 3 days. This is a water pill. Make sure to eat a well-balanced diet while you are on this medication
You really ought to consider seeing an oncologist locally, the drive to [place] may be difficult with your legs down. Return for any significant concerns like worsening shortness of breath, worsening edema, inability to urinate or any issues.
Otherwise continue your medications.
Interventions
Interventions:
*Risk Screen - Suicide Last Done: 01/29/24 21:55
*General Assessment Last Done: 01/29/24 21:55
*Neglect/Abuse Screening Last Done: 01/29/24 21:55
ED- Fall Risk Assessment Last Done: 01/29/24 21:55
*ED COVID-19 Vaccine History Last Done: 01/29/24 21:55
ED- Cardiac Assessment Last Done: 01/30/24 00:19
ED- Pulmonary Assessment Last Done: 01/30/24 00:19
ED-Skin Assessment Last Done: 01/30/24 00:19
Discharge Date and Time
Print Language: JAPANESE
[2024-01-30 02:03] LABS: Urine Albumin Negative (Neg - Trace); Urine Bilirubin Negative (Negative); Urine Character Clear (Clear); Urine Color Yellow; Urine Glucose Negative (Negative); Urine Ketone Negative (Negative); Urine Leukocyte Negative (Negative); Urine Nitrite Negative (Negative); Urine Occult Blood Negative (Negative); Urine Urobilinogen Negative (Neg - 1+)
[2024-01-30 02:40] VITALS: BP 145/67
[2024-01-30 05:55] VITALS: BP 140/70
== END 2024-01-30 08:11 | disposition home or self-care (01) ==
LOC: EMR 21:47
PROVIDERS: Emergency Medicine; EMERGENCY PHYSICIAN Student in an Organized Health Care Education/Training Program; FAMILY PHYSICIAN Family Medicine
DX: R60.0 Localized edema (principal); R03.0 Elevated blood-pressure reading, without diagnosis of hypertension
CPT/HCPCS: 99285; 96374; 96375; 71046; 74177; 80053; 81003; 83880; 85025; 93005; 93970; Q9967